=== PATIENT | male | born 1960 | race Caucasian/White ===

== ENCOUNTER 2016-10-06 19:16 | Observation (INO) | payer OTHER ==
[2016-10-06] VITALS (10 sets, daily range): BP systolic 119–177; BP diastolic 60–92; PULSE 84–95; RESP 18–20; TEMP 99.4; O2SAT 95–99
[~2016-10-06] VITALS: Ht 185.4 cm; Wt 141.0 kg
[~2016-10-06 19:16] MED LIST: FOSA70TA PO; FURO1TAB93 PO; GABA800T PO; HYDR-3129 PO; LANTINJ SQ; LEVE500T10 PO; NEXI40CA PO; NOVOLOGP2 SQ; POTA10IN2 PO; PROM6.257 PO; PROP10TA26 PO; RIFA550 PO; SAXA1TBM PO; TRAD5TAB PO; XANA1TAB6 PO
[2016-10-06] MEDS ORDERED: SODIUM CHLOR 0.9% 1000 ML INJ 1,000 ML IV SCH (19:45)
[2016-10-06] MEDS ORDERED: SODIUM CHLORIDE 0.9% FLUSH 5 ML FLUSH IVF PRN (19:45)
[2016-10-06] MEDS: NITROGLYCERIN 0.4 MG SL 25 TABS/BTL SL SCH ×3 (19:52→20:37)
[2016-10-06 20:07] LABS: AUTOMATED NEUTROPHIL # 4.2 TH/MM3 (1.8-7.7); BASOPHIL # 0.5 TH/MM3 (0-0.2); BASOPHIL % 7.2 % (0.0-2.0); EOSINOPHIL # 0.1 TH/MM3 (0-0.4); EOSINOPHIL % 1.2 % (0.0-4.0); HEMATOCRIT 45.3 % (39.0-51.0); LYMPH % 16.1 % (9.0-44.0); LYMPHOCYTE # 1.1 TH/MM3 (1.0-4.8); MEAN CORPUSCULAR HEMOGLOBIN 31.2 PG (27.0-34.0); MEAN CORPUSCULAR HGB CONC 35.1 % (32.0-36.0); MONO % 13.3 % (0.0-8.0); NEUT % 62.2 % (16.0-70.0); PLATELET COUNT 95 TH/MM3 (150-450); RED BLOOD COUNT 5.09 MIL/MM3 (4.50-5.90); RED CELL DISTRIBUTION WIDTH 12.7 % (11.6-17.2); WHITE BLOOD COUNT 6.8 TH/MM3 (4.0-11.0)
[2016-10-06 20:15] LABS: CHLORIDE 102 MEQ/L (98-107); POTASSIUM 3.9 MEQ/L (3.5-5.1); SODIUM (NA) 138 MEQ/L (136-145)
[2016-10-06 20:18] LABS: ANION GAP 10 MEQ/L (5-15); BICARBONATE 25.6 MEQ/L (21.0-32.0)
[2016-10-06 20:19] LABS: BLOOD UREA NITROGEN 15 MG/DL (7-18)
[2016-10-06 20:21] LABS: APTT (PATIENT) 21.5 SEC (24.3-30.1); INTERNATIONAL NORMALIZED RATIO 1.1 RATIO
[2016-10-06 20:22] LABS: GLOMERULAR FILTRATION RATE 83 ML/MIN (>89); HEMO FLAGS DIFF FINAL
[2016-10-06 20:25] LABS: CREATINE KINASE 216 U/L (39-308)
[2016-10-06 20:37] LABS: CKMB 3.4 NG/ML (0.5-3.6)
[2016-10-06] MEDS ORDERED: ONDANSETRON HCL 4 MG/2 ML VIAL IV PUSH ONE (20:45)
[2016-10-06] MEDS ORDERED: HYDROmorphone HCL PF 1 MG/ML VIAL IV PUSH ONE ×2 (20:45→22:15)
[2016-10-06] MEDS ORDERED: FOSA70TA PO (21:15)
[2016-10-06] MEDS ORDERED: XANA2TAB2 PO (21:15)
[2016-10-06] MEDS ORDERED: NEXI40CA PO (21:16)
[2016-10-06] MEDS ORDERED: FURO1TAB60 PO (21:16)
[2016-10-06] MEDS ORDERED: HYDR-3583 PO (21:17)
[2016-10-06] MEDS ORDERED: GABA800T PO (21:17)
[2016-10-06] MEDS ORDERED: PROP10TA6 PO (21:18)
[2016-10-06] MEDS ORDERED: LEVE500 PO (21:19)
[2016-10-06] MEDS ORDERED: NOVOLOGP2 SQ (21:19)
[2016-10-06] MEDS ORDERED: POTA-163 PO (21:20)
--- NOTE | 2016-10-06 21:20 | RADHPO ---
EXAM DATE/TIME: 10/06/2016 20:22 [facility] COMPARISON: No previous studies available for comparison. INDICATIONS : Chest pain. MEDICAL HISTORY : Congestive heart failure. SURGICAL HISTORY : None. ENCOUNTER: Initial ACUITY: 1 day PAIN SCORE: 10/10 LOCATION: Left chest FINDINGS: A single view of the chest demonstrates the lungs to be symmetrically aerated without evidence of mas s, infiltrate or effusion. The cardiomediastinal contours are unremarkable. Osseous structures are intact. CONCLUSION: No acute findings. Remote right rib fractures. Ronnie Thompson MD on October 06, 2016 at 21:18 Board Certified Radiologist. This report was verified electronically.
[2016-10-06] MEDS ORDERED: PROM6.256 PO (21:22)
[2016-10-06] MEDS ORDERED: METF500T PO (21:23)
[2016-10-06] MEDS ORDERED: XIFA550T4 PO (21:23)
[2016-10-06] MEDS ORDERED: IOHEXOL 350 MG/ML 10 ML VIAL (for RAD DIAG) IV ONE (22:11)
--- NOTE | 2016-10-06 23:17 | RADHPO ---
EXAM DATE/TIME: 10/06/2016 22:36 [facility] COMPARISON: No previous studies available for comparison. INDICATIONS : Left sided chest pain. IV CONTRAST: 80 cc Omnipaque 350 (iohexol) IV RADIATION DOSE: 21.99 CTDIvol (mGy) MEDICAL HISTORY : Gastroesophageal reflux disease. Chronic obstructive pulmonary disease. Cirrhosis.Hepatitis C. Hypert ension. SURGICAL HISTORY : Biliary stent. ENCOUNTER: Initial ACUITY: 1 day PAIN SCALE: 7/10 LOCATION: chest TECHNIQUE: Volumetric scanning of the chest was performed using a pulmonary embolism protocol MIP images were re constructed. Using automated exposure control and adjustment of the mA and/or kV according to patien t size, radiation dose was kept as low as reasonably achievable to obtain optimal diagnostic quality images. FINDINGS: PULMONARY ARTERIES: No filling defects are seen in the pulmonary arteries through the segmental level. LUNGS: There is no consolidation or pneumothorax . No concerning pulmonary nodule is visualized. PLEURAE: There is no pleural thickening or pleural effusion. MEDIASTINUM: There is good visualization of the great vessels of the middle mediastinum. No evidence of mediastin al or hilar adenopathy/mass. Heart size normal. There is coronary artery calcification, especially le ft main and left anterior descending. MUSCULOSKELETAL: Within normal limits for patient age. MISCELLANEOUS: Upper abdomen only partly included on the study. Patient has a TIPS, patency not assessed. Splenic ve in and main portal vein are distended. Marked splenomegaly noted. Previous cholecystectomy. CONCLUSION: 1. No PE or other acute cardiopulmonary disease demonstrated. 2. Coronary artery calcification. 3. Splenomegaly and distended portal vein. Patient has a TIPS. Manuel Griffin MD on October 06, 2016 at 23:13 Board Certified Radiologist. This report was verified electronically.
[2016-10-06] MEDS ORDERED: NITROGLYCERIN 2% OINT 1 GM PACKET TOPICAL ONE (23:30)
[2016-10-07 00:15] VITALS: BP 184/86; PULSE 90; RESP 18; TEMP 97.9; O2SAT 97
--- NOTE | 2016-10-07 00:36 | PD ---
HPI Chief Complaint: Chest Pain Time Seen by Provider: 20:36 Travel History International Travel<30 days: No Contact w/Intl Traveler<30days: No Traveled to known affect area: No History of Present Illness HPI 56-year-old male presents to the emergency department by private transportation for complaint of retrosternal chest pain since approximately 3 PM today. Patient has history of cardiac disease. Patient did not take aspirin or nitroglycerin prior to arrival to the emergency department. Patient has prescription for nitroglycerin but has not used this and does not know if he couldn't take the medication. No reported referred neck jaw back or abdominal pain. Patient does complain of referred pain to the left upper extremity. Patient has extensive past medical history. Patient is unable to identify exacerbating or alleviating factors. Patient also concerned that he may have a blood clot to the lung. Patient has family history of cardiac disease. Patient has history of CAD, CHF, Parkinson's disease, diabetes, chronic pain syndrome, anxiety depression, cirrhosis, COPD, CVA, hepatitis C; but denies tobacco use or alcohol use. Patient has had no recent injury or fall; no protracted bedrest her surgical procedure or long distance travel. Pain is reportedly 10 out of 10 in intensity. PFSH Past Medical History Narrative Medical CAD, CHF, Parkinson's disease, diabetes, chronic pain syndrome, anxiety depression, cirrhosis, COPD, CVA, hepatitis C; but denies tobacco use or alcohol use; cholecystectomy biliary stent cardiac stent; nursing notes reviewed Anxiety: Yes Depression: Yes Cancer: No Cardiac Catheterization: Yes Cardiovascular Problems: Yes Cirrhosis: Yes COPD: Yes Cerebrovascular Accident: Yes Diabetes: Yes Patient Takes Glucophage: Yes (10/06/16 at 0830) Diminished Hearing: No Endocrine: Yes Gastrointestinal Disorders: Yes (LIVER CIRROSIS REFLUX ) GERD: Yes Genitourinary: No Hepatitis: Yes (C) Hiatal Hernia: No Hypertension: Yes Implanted Vascular Access Dvce: Yes (BILIARY STENT) Medical other: Yes (Osteoporosis) Neurologic: Yes (Parkinsons) Psychiatric: No Respiratory: Yes (COPD) Immunizations Current: Yes Seizures: Yes Thyroid Disease: No Tetanus Vaccination: < 5 Years Influenza Vaccination: No Past Surgical History AICD: No Body Medical Devices: Biliary stent CARDIAC STENTS Cholecystectomy: Yes Coronary Stent: Yes (Unknown) Joint Replacement: No Pacemaker: No Other Surgery: Yes (cardiac stents, stent in liver ) Social History Alcohol Use: Yes (Occasionally) Tobacco Use: No Substance Use: No Allergies-Medications (Allergen,Severity, Reaction): Coded Allergies: Aspirin (Verified Allergy, Severe, HIVES, 10/06/16) Lidocaine (Verified Allergy, Severe, RASH, 10/06/16) Tramadol (Verified Allergy, Severe, RASH, 10/06/16) Trazodone (Verified Allergy, Severe, RASH, 10/06/16) Reported Meds & Prescriptions Reported Meds & Active Scripts Active Reported Metformin (Metformin HCl) 500 Mg Tab 500 Mg PO DAILY With a meal Xifaxan (Rifaximin) 550 Mg Tab 550 Mg PO Q12HR Promethazine-Codeine Liq 6.25-10 Mg/5 Ml Syrp 5 Ml PO Q4H PRN Potassium Chloride ER (Potassium Chloride) 20 Meq Tab 20 Meq PO BID Keppra (Levetiracetam) 500 Mg Tab 500 Mg PO BID Novolog Inj (Insulin Aspart) 1,000 Unit/10 Ml Vial 0 SQ DIRECTED Sliding Scale as directed. Propranolol (Propranolol HCl) 10 Mg Tab 10 Mg PO Q8HR Hydrocodone-Acetaminophen 10-325 mg Tab 1 Tab PO Q6H PRN Gabapentin 800 Mg Tab 800 Mg PO TID Lasix (Furosemide) 40 Mg Tab 40 Mg PO BID Nexium (Esomeprazole DR) 40 Mg Capdr 40 Mg PO DAILY Xanax (Alprazolam) 2 Mg Tab 2 Mg PO Q8H PRN Fosamax (Alendronate Sodium) 70 Mg Tab 35 Mg PO Q7D Review of Systems Except as stated in HPI: all other systems reviewed are Neg General / Constitutional: No: Fever, Chills HENT: No: Congestion Cardiovascular: Positive: Chest Pain or Discomfort Respiratory: No: Shortness of Breath Gastrointestinal: No: Abdominal Pain Genitourinary: No: Flank Pain Musculoskeletal: No: Myalgias, Arthralgias Skin: No Rash Neurologic: Positive: Weakness Psychiatric: No: Anxiety Hematologic/Lymphatic: No: Lymph Node Enlargement Physical Exam Narrative GENERAL: Well-developed well-nourished obese male in no acute distress no respiratory distress SKIN: Warm and dry. HEAD: Normocephalic. EYES: No scleral icterus. No injection or drainage. NECK: Supple, trachea midline. No JVD or lymphadenopathy. CARDIOVASCULAR: Regular rate and rhythm without murmurs, gallops, or rubs. RESPIRATORY: Breath sounds equal bilaterally. No accessory muscle use. GASTROINTESTINAL: Abdomen soft, non-tender, nondistended. MUSCULOSKELETAL: No cyanosis, or edema. BACK: Nontender without obvious deformity. No CVA tenderness. Data Data Last Documented VS Vital Signs Date Time Temp Pulse Resp B/P Pulse Ox O2 Delivery O2 Flow Rate FiO2 10/07/16 00:20 18 10/07/16 00:15 97.9 90 184/86 97 Room Air Orders Electrocardiogram (10/06/16 19:36) Basic Metabolic Panel (Bmp) (10/06/16 19:36) B-Type Natriuretic Peptide (10/06/16 19:36) Ckmb (Isoenzyme) Profile (10/06/16 19:36) Complete Blood Count With Diff (10/06/16 19:36) Magnesium (Mg) (10/06/16 19:36) Prothrombin Time / Inr (Pt) (10/06/16 19:36) Act Partial Throm Time (Ptt) (10/06/16 19:36) Troponin I (10/06/16 19:36) Chest, Single Ap (10/06/16 19:36) Ecg Monitoring (10/06/16 19:36) Bilateral Bp Monitoring (10/06/16 19:36) Iv Access Insert/Monitor (10/06/16 19:36) Oximetry (10/06/16 19:36) Oxygen Administration (10/06/16 19:36) Sodium Chloride 0.9% Flush (Ns Flush) (10/06/16 19:45) Nitroglycerin Sl (Nitrostat Sl) (10/06/16 19:45) Sodium Chlor 0.9% 1000 Ml Inj (Ns 1000 M (10/06/16 19:45) CKMB (10/06/16 19:50) CKMB% (10/06/16 19:50) Hydromorphone Pf Inj (Dilaudid Pf Inj) (10/06/16 20:45) Ondansetron Inj (Zofran Inj) (10/06/16 20:45) Lipase (10/06/16 19:50) Ct Pulmonary Angiogram (10/06/16 ) Hydromorphone Pf Inj (Dilaudid Pf Inj) (10/06/16 22:15) Nitroglycerin 2% Oint (Nitroglycerin 2% (10/06/16 23:30) Troponin I (10/07/16 00:22) Ckmb (Isoenzyme) Profile (10/07/16 00:22) Electrocardiogram (10/07/16 ) Admit Order (Ed Use Only) (10/07/16 ) ^ Saline Lock (10/07/16 00:34) Resp Oxygen Roverto C Titrat 1-4 L (10/07/16 ) ^ Notify Dr: Other (10/07/16 00:34) Sodium Chloride 0.9% Flush (Ns Flush) (10/07/16 09:00) Sodium Chloride 0.9% Flush (Ns Flush) (10/07/16 00:45) CKMB (10/07/16 00:30) CKMB% (10/07/16 00:30) Labs Laboratory Tests Test 10/06/16 10/07/16 19:50 00:30 White Blood Count 6.8 TH/MM3 Red Blood Count 5.09 MIL/MM3 Hemoglobin 15.9 GM/DL Hematocrit 45.3 % Mean Corpuscular Volume 89.0 FL Mean Corpuscular Hemoglobin 31.2 PG Mean Corpuscular Hemoglobin 35.1 % Concent Red Cell Distribution Width 12.7 % Platelet Count 95 TH/MM3 Mean Platelet Volume 7.6 FL Neutrophils (%) (Auto) 62.2 % Lymphocytes (%) (Auto) 16.1 % Monocytes (%) (Auto) 13.3 % Eosinophils (%) (Auto) 1.2 % Basophils (%) (Auto) 7.2 % Neutrophils # (Auto) 4.2 TH/MM3 Lymphocytes # (Auto) 1.1 TH/MM3 Monocytes # (Auto) 0.9 TH/MM3 Eosinophils # (Auto) 0.1 TH/MM3 Basophils # (Auto) 0.5 TH/MM3 CBC Comment DIFF FINAL Differential Comment Prothrombin Time 12.0 SEC Prothromb Time International 1.1 RATIO Ratio Activated Partial 21.5 SEC Thromboplast Time Sodium Level 138 MEQ/L Potassium Level 3.9 MEQ/L Chloride Level 102 MEQ/L Carbon Dioxide Level 25.6 MEQ/L Anion Gap 10 MEQ/L Blood Urea Nitrogen 15 MG/DL Creatinine 0.93 MG/DL Estimat Glomerular Filtration 83 ML/MIN Rate Random Glucose 294 MG/DL Calcium Level 9.8 MG/DL Magnesium Level 2.0 MG/DL Total Creatine Kinase 216 U/L 153 U/L Creatine Kinase MB 3.4 NG/ML 2.2 NG/ML Troponin I LESS THAN 0.02 LESS THAN 0.02 NG/ML NG/ML B-Type Natriuretic Peptide 13 PG/ML Lipase 127 U/L Exceptions Acute Myocardial Infarction ASA Not Given on Arrival: Hx. Allergy/Adv. Reaction, Patient Refuses Aspirin Comment: patient refuses aspirin and reports medication allergy to aspirin MDM Medical Decision Making Medical Screen Exam Complete: Yes Emergency Medical Condition: Yes Medical Record Reviewed: Yes (review of medical record cardiac catheterization 03/[address] Martinez minimal to mild coronary vessel disease with ejection fraction of 65%) Interpretation(s) CBC & BMP Diagram 10/06/16 19:50 Last Impressions Chest X-Ray 10/06/16 1936 Signed Impressions: Service Date/Time: Thursday, October 06, 2016 20:22 - CONCLUSION: No acute findings. Remote right rib fractures. Ronnie Thompson MD CT Angiography 10/06/16 0000 Signed Impressions: Service Date/Time: Thursday, October 06, 2016 22:36 - CONCLUSION: 1. No PE or other acute cardiopulmonary disease demonstrated. 2. Coronary artery calcification. 3. Splenomegaly and distended portal vein. Patient has a TIPS. Manuel Griffin MD EKG: Normal sinus rhythm no acute ST elevation or injury pattern change noted Differential Diagnosis Chest pain, ACS, myocardial infarction, PE, aortic dissection, aneurysm, pneumonia, CHF Narrative Course IV access obtained specimens collected and sent for resulting patient administered nitroglycerin without relief patient unable to take aspirin and EKG performed which reveals no acute ST elevation or injury pattern change Patient with ongoing complaint of pain administered Dilaudid 1 mg IV Chest x-ray reveals no acute abnormality EKG sinus rhythm without acute ST elevation or injury pattern change Patient again reports concern for blood clots/PE therefore CT pulmonary angiogram performed CT without evidence of PE Patient comfortable we'll admit to chest pain center per protocol; patient agreeable to observation admission plan Physician Communication Physician Communication case discussed with [facility] service for [employer] protocol Diagnosis Primary Impression: Chest pain Admitting Information Admitting Physician Requests: Observation Payal Carlos MD Oct 07, 2016 00:36
[2016-10-07] MEDS ORDERED: SODIUM CHLORIDE 0.9% FLUSH 5 ML FLUSH IVF PRN ×2 (00:45→01:15)
[2016-10-07 00:54] LABS: CREATINE KINASE 153 U/L (39-308)
[2016-10-07 01:07] LABS: CKMB 2.2 NG/ML (0.5-3.6)
[2016-10-07] MEDS ORDERED: ONDANSETRON HCL 4 MG/2 ML VIAL IV PRN (01:15)
[2016-10-07] MEDS ORDERED: ALPRAZolam 0.25 MG TAB PO PRN (01:15)
[2016-10-07] MEDS ORDERED: NITROGLYCERIN 0.4 MG SL 25 TABS/BTL SL PRN (01:15)
[2016-10-07 01:16] VITALS: BP 144/72; PULSE 86; RESP 20; TEMP 97.2; O2SAT 97
[2016-10-07 01:20] VITALS: BP 159/68
[2016-10-07 01:35] VITALS: PULSE 89
[2016-10-07] MEDS ORDERED: PANTOPRAZOLE SOD 40 MG DELAYED RELEASE TAB PO SCH (09:00)
[2016-10-07] MEDS ORDERED: SODIUM CHLORIDE 0.9% FLUSH 5 ML FLUSH IVF SCH ×2 (09:00)
--- NOTE | 2016-10-07 14:54 | EKG ---
Date Performed: 10/06/2016 Time Performed: 19:22:44 PTAGE: 56 years EKG: Sinus rhythm . Compared to previous tracing, previously seen extensive ST changes have improved Normal ECG PREVIOUS TRACING : 04/03/2016 13.15 DOCTOR: Van Brown Interpretating Date/Time 10/07/2016 14:52:24
--- NOTE | 2016-10-08 10:24 | EKG ---
Date Performed: 10/07/2016 Time Performed: 00:27:50 PTAGE: 56 years EKG: Sinus rhythm Inferior T wave changes are nonspecific Borderline ECG Compared to prior tracing no significant campbell ge PREVIOUS TRACING : 10/06/2016 19.22 DOCTOR: Alejandro Rangel Interpretating Date/Time 10/08/2016 10:23:17
== END 2016-10-07 03:34 | disposition left against medical advice (07) ==
LOC: PHED 19:16 → PHEDA 10-07 00:36 → PH3A 10-07 01:21
PROVIDERS: ADMIT Hospitalist; ATTEND Hospitalist
DX: R07.9 Chest pain, unspecified (principal); I25.10 Atherosclerotic heart disease of native coronary artery without angina pectoris; I10 Essential (primary) hypertension; R94.31 Abnormal electrocardiogram [ECG] [EKG]; R16.1 Splenomegaly, not elsewhere classified; J44.9 Chronic obstructive pulmonary disease, unspecified; K74.60 Unspecified cirrhosis of liver; G89.4 Chronic pain syndrome; G20 Parkinson's disease; E11.9 Type 2 diabetes mellitus without complications; K21.9 Gastro-esophageal reflux disease without esophagitis
CPT/HCPCS: 71010; 71275; 80048; 82550; 82552; 83690; 83735; 83880; 84484; 85025; 85610; 85730; 93005; 96361; 96374; 96375; 96376; 99285; G0378; J1170; J2405; J7030; Q9967

== ENCOUNTER 2016-11-28 22:08 | Observation (INO) | payer OTHER ==
[~2016-11-28] VITALS: Ht 185.4 cm; Wt 141.0 kg
[~2016-11-28 22:08] MED LIST changes: +FURO1TAB60 PO; -FURO1TAB93 PO; -HYDR-3129 PO; +HYDR-3583 PO; -LANTINJ SQ; +LEVE500 PO; -LEVE500T10 PO; +METF500T PO; +POTA-163 PO; -POTA10IN2 PO; +PROM6.256 PO; -PROM6.257 PO; -PROP10TA26 PO; +PROP10TA6 PO; -RIFA550 PO; -SAXA1TBM PO; -TRAD5TAB PO; -XANA1TAB6 PO; +XANA2TAB2 PO; +XIFA550T4 PO
[2016-11-28 22:33] VITALS: BP 169/93; PULSE 99; RESP 20; TEMP 98.4; O2SAT 95
[2016-11-29] VITALS (10 sets, daily range): BP systolic 136–185; BP diastolic 61–86; PULSE 80–95; RESP 14–20; TEMP 96–97.3; O2SAT 95–98
[2016-11-29] MEDS ORDERED: NOVOLOGP2 SQ (01:25)
[2016-11-29] MEDS ORDERED: FURO1TAB60 PO ×2 (01:25)
[2016-11-29] MEDS ORDERED: INSU1INJ13 SQ (01:38)
[2016-11-29] MEDS ORDERED: SOMA350T PO (01:38)
[2016-11-29] MEDS ORDERED: OXYC30TA PO (01:42)
[2016-11-29] MEDS ORDERED: TETANUS/DIPHTHERIA TOXOID ADULT 0.5 ML VIAL IM ONE (02:30)
--- NOTE | 2016-11-29 03:24 | RADHPO ---
EXAM DATE/TIME: 11/29/2016 02:46 [facility] COMPARISON: No previous studies available for comparison. INDICATIONS : Right foot pain after stepping on fern nail, possible foreign body. MEDICAL HISTORY : None. SURGICAL HISTORY : None. ENCOUNTER: Initial ACUITY: 1 day PAIN SCORE: 10/10 LOCATION: Right foot pain, plantar surface. FINDINGS: Two view examination of the right foot demonstrates no soft tissue swelling, dislocation, or fracture . No radiopaque foreign body. The calcaneus is intact. Bony mineralization is normal. CONCLUSION: Unremarkable limited examination of the right foot. Dennis Grijalva Jr., MD on November 29, 2016 at 3:23 Board Certified Radiologist. This report was verified electronically.
[2016-11-29] MEDS ORDERED: CLINDAMYCIN INJ 900 MG in SODIUM CHLORIDE 0.9% INJ 100 ML IV ONE (03:30)
[2016-11-29] MEDS ORDERED: ACETAMINOPHEN/HYDROcodone 325 MG/5 MG TAB PO ONE (03:30)
[2016-11-29] MEDS ORDERED: ACETAMINOPHEN/HYDROcodone 325 MG/5 MG TAB PO PRN ×2 (04:30→12:30)
[2016-11-29] MEDS ORDERED: ACETAMINOPHEN 325 MG TAB PO PRN (04:30)
[2016-11-29] MEDS ORDERED: DEXTROSE 50% IN WATER 50 ML VIAL(D50) IV PUSH PRN (04:30)
[2016-11-29] MEDS ORDERED: GLUCAGON 1 MG/ML VIAL OTHER PRN (04:30)
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
[2016-11-29] MEDS ORDERED: SODIUM CHLORIDE 0.9% FLUSH 10 ML FLUSH IVF PRN (04:45)
[2016-11-29 04:48] LABS: BASOPHIL % 0.5 % (0.0-2.0); EOSINOPHIL # 0.2 TH/MM3 (0-0.4); EOSINOPHIL % 2.3 % (0.0-4.0); HEMATOCRIT 50.2 % (39.0-51.0); HEMO FLAGS DIFF FINAL; LYMPH % 23.3 % (9.0-44.0); LYMPHOCYTE # 1.5 TH/MM3 (1.0-4.8); MEAN CELL VOLUME 86.4 FL (80.0-100.0); MEAN CORPUSCULAR HEMOGLOBIN 29.3 PG (27.0-34.0); MEAN CORPUSCULAR HGB CONC 33.9 % (32.0-36.0); MONO % 11.8 % (0.0-8.0); NEUT % 62.1 % (16.0-70.0); PLATELET COUNT 97 TH/MM3 (150-450); RED CELL DISTRIBUTION WIDTH 13.2 % (11.6-17.2); WHITE BLOOD COUNT 6.5 TH/MM3 (4.0-11.0)
[2016-11-29 04:54] LABS: POTASSIUM 3.6 MEQ/L (3.5-5.1)
[2016-11-29 04:57] LABS: BICARBONATE 25.4 MEQ/L (21.0-32.0)
[2016-11-29] MEDS: INSULIN ASPART SUPPLEMENTAL SCALE SQ SCH ×3 (06:14→23:08)
[2016-11-29] MEDS: CLINDAMYCIN INJ 600 MG in SODIUM CHLORIDE 0.9% INJ 100 ML IV SCH ×2 (09:43→18:28)
[2016-11-29] MEDS: SODIUM CHLORIDE 0.9% FLUSH 10 ML FLUSH IV FLUSH SCH ×2 (09:43→21:00)
[2016-11-29] MEDS: levETIRAcetam 500 MG TAB PO SCH ×2 (12:05→20:04)
[2016-11-29] MEDS: POTASSIUM CHLORIDE 20 MEQ CONTROLLED RELEASE TAB PO SCH ×2 (12:05→20:04)
[2016-11-29] MEDS: RIFAXIMIN 550 MG TAB PO SCH ×2 (12:05→20:03)
[2016-11-29] MEDS: FUROSEMIDE 40 MG TAB PO SCH ×2 (12:05→18:27)
[2016-11-29] MEDS ORDERED: ACETAMINOPHEN/HYDROcodone 325 MG/10 MG TAB PO PRN (12:30)
[2016-11-29] MEDS: PROPRANOLOL HCL 10 MG TAB PO SCH ×2 (13:29→22:11)
[2016-11-29] MEDS ORDERED: INSULIN ASPART 1,000 UNITS/10 ML VIAL SQ ONE (17:30)
[2016-11-29] MEDS: PIPERACIL-TAZO 4.5 GM PREMIX 100 ML IV SCH (18:27)
[2016-11-29] MEDS: HYDROmorphone HCL PF 1 MG/ML VIAL IV PUSH PRN ×2 (18:29→22:11)
--- NOTE | 2016-11-29 18:35 | HHI.HP ---
HPI Service [facility] Primary Care Physician Non-Staff Admission Diagnosis Puncture wound R foot infection; Diabetes Diagnoses: Travel History International Travel<30 Days: No Contact w/Intl Traveler <30 Da: No Traveled to Known Affected Are: No History of Present Illness 56-year-old male with a history of cirrhosis, hepatitis C status post treatment , diabetes, who presents having stepped on a nail with his right foot around 5 PM on 11/28. Nail which was quite fern went through sandal became stuck in pad of right foot, had to be removed with pliers by the patient. He reports extreme sharp pain which is constant in the right foot, nonradiating. He reports feeling all right prior to stepping on the nail, at baseline. Sterile culture was performed in ER. He reports that pain in right foot has gotten worse since admission. Patient denies any fevers. Denies any nausea or vomiting. Denies any headache. Denies any chest pain or shortness of breath. Review of Systems Performed and negative except for history of present illness and past medical history. Past Family Social History Past Medical History Seizures Hepatic encephalopathy Cirrhosis Hepatitis C, reportedly resolved after treatment Diabetes mellitus. Patient reports most recent A1c is under 7. Neuropathy Anxiety, depression. Patient denies any suicidal ideation. Reportedly coronary artery disease, however ejection fraction and cardiac catheterization in 2015 within normal limits. No significant coronary artery disease. Parkinson's Sleep apnea Reported CVA. Past Surgical History Reported cardiac stenting. Reported biliary stenting. Ported surgery to left foot Reported Medications Reported Meds & Active Scripts Active Reported Oxycodone (Oxycodone HCl) 30 Mg Tab 30 Mg PO Q8H PRN Tresiba Flextouch Pen Inj (Insulin Degludec Inj) 600 unit/3 ML Pen 80 Units SQ DAILY Soma (Carisoprodol) 350 Mg Tab 350 Mg PO TID Novolog Inj (Insulin Aspart) 1,000 Unit/10 Ml Vial 35 Units SQ TIDAC Lasix (Furosemide) 40 Mg Tab 40 Mg PO 1PM & 6PM Lasix (Furosemide) 40 Mg Tab 80 Mg PO AC BREAKFAST Metformin (Metformin HCl) 500 Mg Tab 500 Mg PO DAILY With a meal Xifaxan (Rifaximin) 550 Mg Tab 550 Mg PO Q12HR Promethazine-Codeine Liq 6.25-10 Mg/5 Ml Syrp 5 Ml PO Q4H PRN Potassium Chloride ER (Potassium Chloride) 20 Meq Tab 20 Meq PO BID Keppra (Levetiracetam) 500 Mg Tab 500 Mg PO BID Propranolol (Propranolol HCl) 10 Mg Tab 10 Mg PO Q8HR Hydrocodone-Acetaminophen 10-325 mg Tab 1 Tab PO Q6H PRN Nexium (Esomeprazole DR) 40 Mg Capdr 40 Mg PO DAILY Xanax (Alprazolam) 2 Mg Tab 2 Mg PO Q8H PRN Fosamax (Alendronate Sodium) 70 Mg Tab 35 Mg PO Q7D Allergies: Coded Allergies: Aspirin (Verified Allergy, Severe, HIVES, 11/29/16) Lidocaine (Verified Allergy, Severe, RASH, 11/29/16) Tramadol (Verified Allergy, Severe, RASH, 11/29/16) Trazodone (Verified Allergy, Severe, RASH, 11/29/16) Family History Family history reviewed with the patient, and found to be currently noncontributory. Social History Nonsmoker. Quit smoking in 1979 after smoking for 2 years. Nondrinker. The patient denies illicit drugs. Patient lives with roommate. Physical Exam Vital Signs Vital Signs Date Time Temp Pulse Resp B/P Pulse Ox O2 Delivery O2 Flow Rate FiO2 11/29/16 12:30 96.3 82 16 185/81 98 11/29/16 08:34 96.6 86 14 164/72 97 11/29/16 08:00 96 21 11/29/16 08:00 96.6 86 15 164/72 97 11/29/16 06:27 96 21 11/29/16 06:19 97.3 90 20 157/73 97 11/29/16 05:30 94 18 146/61 95 Room Air 11/29/16 04:30 90 18 11/29/16 04:30 90 18 143/70 96 Room Air 11/29/16 01:35 95 18 182/77 96 Room Air 11/29/16 01:30 96 18 11/28/16 22:33 98.4 99 20 169/93 95 Physical Exam GENERAL: This is a well-nourished, well-developed patient, in no apparent distress. Obese. Alert and oriented 3. SKIN: No rashes, ecchymoses or lesions. Cool and dry. HEAD: Atraumatic. Normocephalic. No temporal or scalp tenderness. EYES: Pupils equal round and reactive. Extraocular motions intact. No scleral icterus. No injection or drainage. ENT: Nose without bleeding, purulent drainage or septal hematoma. Throat without erythema, tonsillar hypertrophy or exudate. Uvula midline. Airway patent. NECK: Trachea midline. No JVD or lymphadenopathy. Supple, nontender, no meningeal signs. CARDIOVASCULAR: Regular rate and rhythm without murmurs, gallops, or rubs. RESPIRATORY: Clear to auscultation. Breath sounds equal bilaterally. No wheezes , rales, or rhonchi. GASTROINTESTINAL: Abdomen soft, non-tender, nondistended. No hepato-splenomegaly , or palpable masses. No guarding. MUSCULOSKELETAL: Extremities without clubbing, cyanosis, or edema. Right foot with 2 mm puncture wound, surrounded by 0.5 cm of erythema area exquisitely tender to palpation. No crepitus. NEUROLOGICAL: Awake and alert. Cranial nerves II through XII intact. Motor and sensory grossly within normal limits. Five out of 5 muscle strength in all muscle groups. Normal speech. Laboratory Laboratory Tests Test 11/29/16 04:05 White Blood Count 6.5 Red Blood Count 5.80 Hemoglobin 17.0 Hematocrit 50.2 Mean Corpuscular Volume 86.4 Mean Corpuscular Hemoglobin 29.3 Mean Corpuscular Hemoglobin 33.9 Concent Red Cell Distribution Width 13.2 Platelet Count 97 Mean Platelet Volume 7.7 Neutrophils (%) (Auto) 62.1 Lymphocytes (%) (Auto) 23.3 Monocytes (%) (Auto) 11.8 Eosinophils (%) (Auto) 2.3 Basophils (%) (Auto) 0.5 Neutrophils # (Auto) 4.0 Lymphocytes # (Auto) 1.5 Monocytes # (Auto) 0.8 Eosinophils # (Auto) 0.2 Basophils # (Auto) 0.0 CBC Comment DIFF FINAL Differential Comment Sodium Level 138 Potassium Level 3.6 Chloride Level 101 Carbon Dioxide Level 25.4 Anion Gap 12 Blood Urea Nitrogen 12 Creatinine 0.87 Estimat Glomerular Filtration 90 Rate Random Glucose 264 Calcium Level 10.1 Date/Time Procedure Status Source Growth 11/29/16 04:35 Gram Stain - Final Resulted Wound Foot 11/29/16 04:35 Wound Culture Resulted Wound Foot Pending 11/29/16 04:12 Aerobic Blood Culture Received Blood Peripheral Pending 11/29/16 04:12 Anaerobic Blood Culture Received Blood Peripheral Pending Result Diagram: 11/29/16 0405 11/29/16 0405 Imaging Last Impressions Foot X-Ray 11/29/16 0000 Signed Impressions: Service Date/Time: November 02:46 - CONCLUSION: Unremarkable limited examination of the right foot. Dennis Grijalva Jr., MD Assessment and Plan Assessment and Plan //Diabetic foot infection. //Status post nail puncture by foot -Nail went through shoe -Received tetanus vaccination. -Initially on clindamycin IV started on admission -11/29. We'll start Zosyn for antipseudomonal coverage and diabetic foot wound in consult podiatry. Cultures on admission with rare gram-positive cocci. //Diabetes. With hyperglycemia today. -11/29. Glucose in the 400s. We'll increase Levemir, add mealtime aspart, increased sliding scale. Continue to monitor. //History of seizures. Continue Keppra. //History of hepatic encephalopathy. //History of cirrhosis. No acute issues. Continue home medications. Continue diuretics. //GERD. Chronic. Continue PPI. //Chronic pain. Continue home medications. Add Dilaudid for breakthrough pain. //From cytopenia. Platelets 97. No signs of bleeding. Secondary to cirrhosis. Continue to monitor. //Prophylaxis. Will hold off on anticoagulation pending podiatry evaluation. Discussed Condition With Patient, nurse. Physician Certification 2 Midnight Certification Type: Admission for Inpatient Services Order for Inpatient Services The services are ordered in accordance with Medicare regulations or non- Medicare payer requirements, as applicable. In the case of services not specified as inpatient-only, they are appropriately provided as inpatient services in accordance with the 2-midnight benchmark. Estimated LOS (days): 3 days is the estimated time the patient will need to remain in the hospital, assuming treatment plan goals are met and no additional complications. Post-Hospital Plan: Not yet determined Shine Nguyen MD Nov 29, 2016 18:35
[2016-11-29] MEDS: INSULIN DETEMIR 100 UNITS/ML VIAL SQ SCH (20:11)
[2016-11-30] VITALS: BP 95/58; PULSE 73; RESP 20; TEMP 97.1; O2SAT 96
[2016-11-30] MEDS: CLINDAMYCIN INJ 600 MG in SODIUM CHLORIDE 0.9% INJ 100 ML IV SCH ×3 (02:35→17:00)
[2016-11-30] MEDS: PIPERACIL-TAZO 4.5 GM PREMIX 100 ML IV SCH ×4 (02:36→17:25)
[2016-11-30 04:00] VITALS: BP 118/71; PULSE 71; RESP 20; TEMP 97; O2SAT 96
[2016-11-30] MEDS: INSULIN ASPART SUPPLEMENTAL SCALE SQ SCH ×4 (07:21→22:22)
[2016-11-30] MEDS: FUROSEMIDE 40 MG TAB PO SCH ×3 (07:21→17:31)
[2016-11-30] MEDS: PROPRANOLOL HCL 10 MG TAB PO SCH ×3 (07:22→22:20)
[2016-11-30 07:34] LABS: AUTOMATED NEUTROPHIL # 1.1 TH/MM3 (1.8-7.7); BASOPHIL % 0.5 % (0.0-2.0); EOSINOPHIL # 0.1 TH/MM3 (0-0.4); EOSINOPHIL % 3.2 % (0.0-4.0); HEMATOCRIT 42.8 % (39.0-51.0); LYMPH % 32.5 % (9.0-44.0); LYMPHOCYTE # 0.7 TH/MM3 (1.0-4.8); MEAN CELL VOLUME 87.3 FL (80.0-100.0); MEAN CORPUSCULAR HEMOGLOBIN 29.7 PG (27.0-34.0); MEAN CORPUSCULAR HGB CONC 34.1 % (32.0-36.0); MONO % 14.6 % (0.0-8.0); NEUT % 49.2 % (16.0-70.0); PLATELET COUNT 54 TH/MM3 (150-450); RED BLOOD COUNT 4.91 MIL/MM3 (4.50-5.90); RED CELL DISTRIBUTION WIDTH 13.1 % (11.6-17.2); WHITE BLOOD COUNT 2.2 TH/MM3 (4.0-11.0)
[2016-11-30 07:35] LABS: HEMO FLAGS AUTO DIFF
[2016-11-30 07:43] LABS: POTASSIUM 3.8 MEQ/L (3.5-5.1)
[2016-11-30 07:46] LABS: BICARBONATE 26.4 MEQ/L (21.0-32.0); MAGNESIUM 2.3 MG/DL (1.5-2.5)
[2016-11-30 08:00] VITALS: BP 119/63; PULSE 69; RESP 18; TEMP 97.8; O2SAT 99
[2016-11-30] MEDS: INSULIN ASPART 1,000 UNITS/10 ML VIAL SQ SCH ×3 (08:00→17:00)
[2016-11-30 08:38] LABS: PLATELET ESTIMATE SMEAR LOW (NORMAL); PLATELET MORPHOLOGY NORMAL (NORMAL); SCAN/DIFF AUTO DIFF CONFIRMED
[2016-11-30] MEDS: INSULIN DETEMIR 100 UNITS/ML VIAL SQ SCH (08:46)
[2016-11-30] MEDS: POTASSIUM CHLORIDE 20 MEQ CONTROLLED RELEASE TAB PO SCH ×2 (08:48→22:20)
[2016-11-30] MEDS: CARISOPRODOL 350 MG TAB PO SCH ×3 (08:48→17:31)
[2016-11-30] MEDS: PANTOPRAZOLE SOD 40 MG DELAYED RELEASE TAB PO SCH (08:48)
[2016-11-30] MEDS: levETIRAcetam 500 MG TAB PO SCH ×2 (08:48→22:20)
[2016-11-30] MEDS: RIFAXIMIN 550 MG TAB PO SCH ×2 (08:48→22:20)
[2016-11-30] MEDS: SODIUM CHLORIDE 0.9% FLUSH 10 ML FLUSH IV FLUSH SCH ×2 (08:49→21:00)
[2016-11-30] MEDS: HYDROmorphone HCL PF 1 MG/ML VIAL IV PUSH PRN ×3 (08:49→17:24)
[2016-11-30] MEDS ORDERED: INSULIN DETEMIR 100 UNITS/ML VIAL SQ ONE (11:15)
[2016-11-30 12:00] VITALS: BP 136/64; PULSE 73; RESP 20; TEMP 97.2; O2SAT 96
[2016-11-30 16:00] VITALS: BP 114/58; PULSE 77; RESP 20; TEMP 97.1; O2SAT 99
[2016-11-30] MEDS ORDERED: INSULIN ASPART 1,000 UNITS/10 ML VIAL SQ ONE (16:45)
[2016-11-30] MEDS: CEFEPIME INJ 2,000 MG in SODIUM CHLORIDE 0.9% INJ 100 ML IV SCH (18:00)
[2016-11-30 20:00] VITALS: BP 128/65; PULSE 79; RESP 20; TEMP 97; O2SAT 98
[2016-11-30] MEDS ORDERED: INSULIN DETEMIR 100 UNITS/ML VIAL SQ SCH (21:00)
--- NOTE | 2016-11-30 22:37 | HHI.PR ---
Subjective Remarks Patient seen today around 1 PM. He says the pain is better controlled today, but continues to per report severe pain in the right foot.. Denies any chest pain or shortness of breath. Denies any nausea or vomiting. Objective Vital Signs Date Time Temp Pulse Resp B/P Pulse Ox O2 Delivery O2 Flow Rate FiO2 11/30/16 18:15 18 11/30/16 18:15 18 11/30/16 16:00 97.1 77 20 114/58 99 11/30/16 12:00 97.2 73 20 136/64 96 11/30/16 08:00 97.8 69 18 119/63 99 11/30/16 04:00 97.0 71 20 118/71 96 11/30/16 00:00 97.1 73 20 95/58 96 I/O 11/29/16 11/29/16 11/29/16 11/30/16 11/30/16 11/30/16 07:00 15:00 23:00 07:00 15:00 23:00 Intake Total 340 ml 1650 ml 1850 ml 1275 ml Output Total 900 ml 600 ml 2300 ml 2750 ml Balance -560 ml 1050 ml -450 ml -1475 ml Intake Oral 240 ml 1650 ml 1450 ml 925 ml IV Total 100 ml 400 ml 350 ml Output Urine Total 900 ml 600 ml 2300 ml 2750 ml # Voids 5 # Bowel Movements 2 0 1 Result Diagram: 11/30/16 0710 11/30/16 0710 Objective Remarks patient sitting up in bed. Appears comfortable.GENERAL: SKIN: Warm and dry. HEAD: Normocephalic. EYES: No scleral icterus. No injection or drainage. NECK: Supple, trachea midline. No JVD or lymphadenopathy. CARDIOVASCULAR: Regular rate and rhythm without murmurs, gallops, or rubs. RESPIRATORY: Breath sounds equal bilaterally. No accessory muscle use. GASTROINTESTINAL: Abdomen soft, non-tender, nondistended. MUSCULOSKELETAL: No cyanosis, or edema. right foot with improved erythema. Still with swelling on foot pad BACK: Nontender without obvious deformity. No CVA tenderness. A/P Assessment and Plan //Diabetic foot infection. //Status post nail puncture by foot -Nail went through shoe -Received tetanus vaccination. -Initially on clindamycin IV started on admission -11/29. We'll start Zosyn for antipseudomonal coverage and diabetic foot wound in consult podiatry. Cultures on admission with rare gram-positive cocci. -11/30. Appreciate podiatry assistance. Switched to cefepime due to thrombocytopenia //Diabetes. . -11/29. Glucose in the 400s. We'll increase Levemir, add mealtime aspart, increased sliding scale. Continue to monitor. -11/30. Increase insulin again. A1c pending. //History of seizures. Continue Keppra. //History of hepatic encephalopathy. //History of cirrhosis. No acute issues. Continue home medications. Continue diuretics. //GERD. Chronic. Continue PPI. //Chronic pain. Continue home medications. Add Dilaudid for breakthrough pain. //Thrombocytopenia Platelets 97. No signs of bleeding. Secondary to cirrhosis. -11/30. Discontinue Zosyn. Continue to monitor. //Prophylaxis. SCDs. Will hold off on anticoagulation due to thrombocytopenia. Discharge Planning pending podiatry clearance. Shine Nguyen MD Nov 30, 2016 22:36
[2016-12-01] VITALS: BP 107/63; PULSE 75; RESP 18; TEMP 98.1; O2SAT 96
[2016-12-01] MEDS: HYDROmorphone HCL PF 1 MG/ML VIAL IV PUSH PRN ×2 (00:39→08:54)
[2016-12-01] MEDS: CLINDAMYCIN INJ 600 MG in SODIUM CHLORIDE 0.9% INJ 100 ML IV SCH ×2 (03:33→08:38)
[2016-12-01] MEDS: CEFEPIME INJ 2,000 MG in SODIUM CHLORIDE 0.9% INJ 100 ML IV SCH (05:54)
[2016-12-01] MEDS: INSULIN ASPART SUPPLEMENTAL SCALE SQ SCH (05:55)
[2016-12-01] MEDS: PROPRANOLOL HCL 10 MG TAB PO SCH (05:55)
[2016-12-01] MEDS: FUROSEMIDE 40 MG TAB PO SCH (06:36)
[2016-12-01 08:00] VITALS: BP 91/56; PULSE 65; RESP 18; TEMP 96.7; O2SAT 99
[2016-12-01] MEDS ORDERED: INSULIN ASPART 1,000 UNITS/10 ML VIAL SQ SCH (08:00)
[2016-12-01 08:07] LABS: AUTOMATED NEUTROPHIL # 1.4 TH/MM3 (1.8-7.7); BASOPHIL % 0.7 % (0.0-2.0); EOSINOPHIL # 0.1 TH/MM3 (0-0.4); EOSINOPHIL % 3.7 % (0.0-4.0); HEMATOCRIT 40.5 % (39.0-51.0); LYMPH % 32.5 % (9.0-44.0); LYMPHOCYTE # 0.8 TH/MM3 (1.0-4.8); MEAN CELL VOLUME 86.6 FL (80.0-100.0); MEAN CORPUSCULAR HEMOGLOBIN 30.5 PG (27.0-34.0); MEAN CORPUSCULAR HGB CONC 35.2 % (32.0-36.0); MONO % 11.6 % (0.0-8.0); NEUT % 51.5 % (16.0-70.0); PLATELET COUNT 49 TH/MM3 (150-450); RED BLOOD COUNT 4.68 MIL/MM3 (4.50-5.90); RED CELL DISTRIBUTION WIDTH 12.6 % (11.6-17.2); WHITE BLOOD COUNT 2.6 TH/MM3 (4.0-11.0)
--- NOTE | 2016-12-01 08:09 | MB ---
cc: YULIANA SANCHEZ DATE OF CONSULTATION: 11/30/2016 CHIEF COMPLAINT Right foot puncture wound. HISTORY OF PRESENT ILLNESS Mr. Cochran is a 56-year-old male patient who states that he stepped on a fern nail in his right foot on November 28 around 05:00 p.m. The patient was brought to the ER shortly after he had already removed the nail by himself but was having severe pain and had not had a tetanus shot in several years, so he went to the ER to receive Tetanus shot and was also given antibiotics and admitted. He denies any nausea, vomiting, fever, headache, chills, just extreme pain out of proportion. PAST MEDICAL HISTORY: 1. Medical history includes cirrhosis 2. Hepatitis C post treatment. 3. Diabetes mellitus 4. Neuropathy 5. Anxiety 6. Coronary artery disease 7. Parkinson's 8. History of CVA 9. Hepatic encephalopathy 10. Seizures. PAST SURGICAL HISTORY: 1. Includes cardiac stents 2. Biliary stenting. 3. Surgery to the left foot. MEDICATIONS Please see list. ALLERGIES ASPIRIN LIDOCAINE TRAMADOL FAMILY HISTORY Noncontributory. SOCIAL HISTORY The patient non smoker, He quit in 1979 denies any alcohol or illicit drug. Lives with is life partner. LABORATORY DATA White count is 2.2 with a max of 6.5, hemoglobin 14.6, hematocrit 42.8, platelets 54, sodium 140 potassium 3.8, chloride 106, carbon dioxide 26.4, BUN 12, glucose 293, blood cultures negative x1 day. Wound cultures with gram stain is negative. X-ray of the right foot were negative for any signs of foreign body severe soft tissue edema, fracture, gas in the soft tissue or cortical erosion. PHYSICAL EXAMINATION: VITAL SIGNS: Temperature is 97.1 T-max 98.4, pulse 77, respiratory rate 20, blood pressure 114/58, pulse ox 99% O2 on room air. EXAMINATION: The patient has palpable pulses. Cap fill time less than 3 secs. Gross sensation is diminished. Wound at right plantar central aspect around the second interspace of the right foot measuring 0.5 x 0.5 x0cm Sensitivity around the wound site, I feel is out of proportion considering the appearance of the wound. Mild erythema to the dorsum of the foot, non streaking. There is slight edema comparable to edema on the contralateral foot. ASSESSMENT/PLAN 1. Puncture wound with questionable cellulitis. -No obvious signs of abscess or deeper infection, however examination is limited due to the patients pain. He states that the pain is excruciating, even with the lightest touch, including checking pedal pulses. Therefore exam was limited, however the bandage was almost 16-hour-old with minimal drainage on it. No malodor and the erythema was not overly impressive. The radiographs were negative. Given this information I advised patient to WBAT in a CAM boot and daily dressing instructions were provided for nursing staff. No surgical intervention from podiatric stand point. Patient has [employer] insurance and will need a referral for any follow up, but has an appt with his PCP on Saturday. Thank you for this consultation and please call if there are any changes or further developments. 3. At this time and no further treatment for the patient's of the duration of IV antibiotics to the hospitalist, suggesting dressing changes, bacitracin ointment. We will order a Cam walking boot to provide more comfort to the patient when ambulating. He does actually stand up and will need a referral for any outpatient follow up. But has an appointment with his primary care doctor on Saturday. Please not hesitate to call to reconsult if there are any further negative developments. Yuliana Khan /9:54 PM /7:51 AM TATIANNA
[2016-12-01 08:15] LABS: POTASSIUM 3.9 MEQ/L (3.5-5.1)
[2016-12-01 08:20] LABS: BICARBONATE 27.5 MEQ/L (21.0-32.0); HEMO FLAGS AUTO DIFF
[2016-12-01] MEDS: SODIUM CHLORIDE 0.9% FLUSH 10 ML FLUSH IV FLUSH SCH (08:39)
[2016-12-01] MEDS: POTASSIUM CHLORIDE 20 MEQ CONTROLLED RELEASE TAB PO SCH (08:39)
[2016-12-01] MEDS: levETIRAcetam 500 MG TAB PO SCH (08:39)
[2016-12-01] MEDS: PANTOPRAZOLE SOD 40 MG DELAYED RELEASE TAB PO SCH (08:39)
[2016-12-01] MEDS: CARISOPRODOL 350 MG TAB PO SCH (08:40)
[2016-12-01] MEDS: RIFAXIMIN 550 MG TAB PO SCH (08:40)
[2016-12-01 08:42] LABS: PLATELET ESTIMATE SMEAR LOW (NORMAL); PLATELET MORPHOLOGY NORMAL (NORMAL); SCAN/DIFF AUTO DIFF CONFIRMED
[2016-12-01] MEDS ORDERED: metFORMIN HCL 500 MG TAB PO SCH (09:00)
[2016-12-01] MEDS ORDERED: MUPIROCIN 2% OINT 22 GM TUBE TOPICAL SCH (09:00)
[2016-12-01] MEDS ORDERED: INSULIN DETEMIR 100 UNITS/ML VIAL SQ SCH (09:00)
[2016-12-01] MEDS ORDERED: OXYC1CAP PO (10:08)
[2016-12-01] MEDS ORDERED: CEPH-460 PO (10:11)
[2016-12-01] MEDS ORDERED: MUPI2OIN TOPICAL (10:25)
[2016-12-01] MEDS ORDERED: OXYC-395 PO (10:40)
[2016-12-01 13:13] LABS: HEMOGLOBIN A1b 2.1 %; HEMOGLOBIN Ao 80.1 %; HEMOGLOBIN LA1C 3.4 %; HEMOGLOBIN P3 4.7 %
--- NOTE | 2016-12-02 07:58 | HHI.PR ---
Subjective Remarks Date of service 12/01/16. Patient seen the morning of 12/01/16. He states that pain is controlled. He does not have pain medication at home, is requesting prescription. He agrees to follow up with primary care. He has been supplied with walking boot, crutches. He says he feels comfortable going home. He will take care to avoid other nails Objective Vital Signs Date Time Temp Pulse Resp B/P Pulse Ox O2 Delivery O2 Flow Rate FiO2 12/01/16 08:00 96.7 65 18 91/56 99 I/O 12/01/16 12/01/16 12/01/16 12/02/16 12/02/16 12/02/16 07:00 15:00 23:00 07:00 15:00 23:00 Output Total 900 ml Balance -900 ml Output Urine Total 900 ml Result Diagram: 12/01/16 0740 12/01/16 0740 Imaging Last Impressions Foot X-Ray 11/29/16 0000 Signed Impressions: Service Date/Time: November 02:46 - CONCLUSION: Unremarkable limited examination of the right foot. Dennis Grijalva Jr., MD Objective Remarks GENERAL: Patient sitting up in bed as before. Appears comfortable. Alert and oriented 3. SKIN: Warm and dry. HEAD: Normocephalic. EYES: No scleral icterus. No injection or drainage. NECK: Supple, trachea midline. No JVD. CARDIOVASCULAR: Regular rate and rhythm without murmurs, gallops, or rubs. RESPIRATORY: Breath sounds equal bilaterally. No accessory muscle use. GASTROINTESTINAL: Abdomen soft, non-tender, nondistended. MUSCULOSKELETAL: No cyanosis, or edema. right foot with improved erythema. Still with swelling on foot pad, improved from yesterday. BACK: Nontender without obvious deformity. No CVA tenderness. A/P Assessment and Plan //Diabetic foot infection. //Status post nail puncture by foot -Nail went through shoe -Received tetanus vaccination. -Initially on clindamycin IV started on admission -11/29. We'll start Zosyn for antipseudomonal coverage and diabetic foot wound in consult podiatry. Cultures on admission with rare gram-positive cocci. -11/30. Appreciate podiatry assistance. Switched to cefepime due to thrombocytopenia -12/01. Podiatry has supplied patient with boot. He will follow-up with primary care as outpatient. Continue Keflex to complete treatment course. He'll return if any fevers. //Diabetes. . -11/29. Glucose in the 400s. We'll increase Levemir, add mealtime aspart, increased sliding scale. Continue to monitor. -11/30. Increase insulin again. A1c pending. -12/01. Control somewhat improved. Discharge home. A1c 8.5 uncontrolled. Follow with primary care. //History of seizures. Chronic. Continue Keppra. //History of hepatic encephalopathy. //History of cirrhosis. No acute issues. Continue home medications. Continue diuretics. //GERD. Chronic. Continue PPI. //Chronic pain. //Acute pain in right foot secondary to wound Continue home medications. -Discharged home on short course of oxycodone. She will follow-up with primary care. //Thrombocytopenia Platelets 97 on admission. No signs of bleeding. Secondary to cirrhosis. -11/30. Decrease in platelets to 54. Discontinue Zosyn. Continue to monitor. -12/01. Platelets overall stable at 49. Hemoglobin stable. Likely can [place] to Zosyn. Expect to improve. Follow with primary care. //Leukopenia. 2.6. Stable. Neutrophils acceptable. //Prophylaxis. SCDs. Will hold off on anticoagulation due to thrombocytopenia. Discharge Planning appreciate podiatry assistance. Discharge home. Shouldn't has been provided with walking boot. Keflex to complete treatment course. He does have leukopenia and thrombocytopenia, likely secondary to Zosyn. Expect to improve. Follow-up with primary care. Shine Nguyen MD Dec 02, 2016 07:58
--- NOTE | 2016-12-02 08:03 | HHI.DS ---
Discharge Summary Admission Date Nov 29, 2016 at 04:45 Discharge Date: Dec 01, 2016 Admitting Diagnosis Puncture wound R foot infection; Diabetes (1) Puncture wound of foot, right ICD Code: S91.331A (2) Diabetes ICD Code: E11.9 Procedures Wound probed on admission in the ER, with sterile culture at that time. Normal skin marielena resulted Brief History - From Admission 56-year-old male with a history of cirrhosis, hepatitis C status post treatment , diabetes, who presents having stepped on a nail with his right foot around 5 PM on 11/28. Nail which was quite fern went through sandal became stuck in pad of right foot, had to be removed with pliers by the patient. He reports extreme sharp pain which is constant in the right foot, nonradiating. He reports feeling all right prior to stepping on the nail, at baseline. Sterile culture was performed in ER. He reports that pain in right foot has gotten worse since admission. Patient denies any fevers. Denies any nausea or vomiting. Denies any headache. Denies any chest pain or shortness of breath. CBC/BMP: 12/01/16 0740 12/01/16 0740 Significant Findings Laboratory Tests Test 11/30/16 11/30/16 12/01/16 07:10 18:20 07:40 White Blood Count 2.2 TH/MM3 2.6 TH/MM3 (4.0-11.0) (4.0-11.0) Platelet Count 54 TH/MM3 49 TH/MM3 (150-450) (150-450) Monocytes (%) (Auto) 14.6 % 11.6 % (0.0-8.0) (0.0-8.0) Neutrophils # (Auto) 1.1 TH/MM3 1.4 TH/MM3 (1.8-7.7) (1.8-7.7) Lymphocytes # (Auto) 0.7 TH/MM3 0.8 TH/MM3 (1.0-4.8) (1.0-4.8) Platelet Estimate LOW (NORMAL) LOW (NORMAL) Random Glucose 293 MG/DL 236 MG/DL (74-106) (74-106) Phosphorus Level 2.3 MG/DL (2.5-4.9) Albumin 2.9 GM/DL (3.4-5.0) Hemoglobin A1c 8.5 % (4.3-6.0) Imaging Last Impressions Foot X-Ray 11/29/16 0000 Signed Impressions: Service Date/Time: November 02:46 - CONCLUSION: Unremarkable limited examination of the right foot. Dennis Grijalva Jr., MD Hospital Course Foot x-ray with no acute findings. Patient was started on broad-spectrum antibiotics, narcotic pain medication with slow improvement in pain. Podiatry was consulted, does not feel any intervention is necessary. Will discharge home on course of Keflex. Patient will need to follow-up with primary care. He will medical attention if fevers or chills. Patient does have leukopenia with acceptable neutrophil count, which is up trending at discharge. He also has acute on chronic thrombocytopenia, platelets 97 on admission, subsequently 54, 49 on date of discharge without any acute bleeding. He did not receive heparin, however did receive Zosyn. 07 was discontinued. Follow-up with primary care. For problem-based summary for most recent progress note, please see below. //Diabetic foot infection. //Status post nail puncture by foot -Nail went through shoe -Received tetanus vaccination. -Initially on clindamycin IV started on admission -11/29. We'll start Zosyn for antipseudomonal coverage and diabetic foot wound in consult podiatry. Cultures on admission with rare gram-positive cocci. -11/30. Appreciate podiatry assistance. Switched to cefepime due to thrombocytopenia -12/01. Podiatry has supplied patient with boot. He will follow-up with primary care as outpatient. Continue Keflex to complete treatment course. He'll return if any fevers. //Diabetes. . -11/29. Glucose in the 400s. We'll increase Levemir, add mealtime aspart, increased sliding scale. Continue to monitor. -11/30. Increase insulin again. A1c pending. -12/01. Control somewhat improved. Discharge home. A1c 8.5 uncontrolled. Follow with primary care. //History of seizures. Chronic. Continue Keppra. //History of hepatic encephalopathy. //History of cirrhosis. No acute issues. Continue home medications. Continue diuretics. //GERD. Chronic. Continue PPI. //Chronic pain. //Acute pain in right foot secondary to wound Continue home medications. -Discharged home on short course of oxycodone. She will follow-up with primary care. //Thrombocytopenia Platelets 97 on admission. No signs of bleeding. Secondary to cirrhosis. -11/30. Decrease in platelets to 54. Discontinue Zosyn. Continue to monitor. -12/01. Platelets overall stable at 49. Hemoglobin stable. Likely can [place] to Zosyn. Expect to improve. Follow with primary care. //Leukopenia. 2.6. Stable. Neutrophils acceptable. //Prophylaxis. SCDs. Will hold off on anticoagulation due to thrombocytopenia. Discharge Planning appreciate podiatry assistance. Discharge home. Shouldn't has been provided with walking boot. Keflex to complete treatment course. He does have leukopenia and thrombocytopenia, likely secondary to Zosyn. Expect to improve. Follow-up with primary care. Pt Condition on Discharge: Good Discharge Disposition: Discharge Home Discharge Time: > 30 minutes Discharge Instructions DIET: Follow Instructions for: Diabetic Diet Activities you can perform: Regular-No Restrictions Other Activity Instructions: wear walking boot Follow up Referrals: PCP Follow-up - 2-3 Days New Medications: Cephalexin (Keflex) 500 Mg Cap 500 MG PO Q6H Infection #28 Ref 0 CAP Mupirocin Topical (Mupirocin Topical) 2 % Oint 1 APPLIC TOPICAL BID Mgmt Bacterial Infection #1 Ref 0 TUBE Oxycodone (Oxycodone) 10 Mg Tab 10 MG PO Q4H PRN PAIN #20 Ref 0 TAB Continued Medications: Alendronate (Fosamax) 70 Mg Tab 35 MG PO Q7D Osteoporosis Treatment #4 Ref 0 TAB Alprazolam (Xanax) 2 Mg Tab 2 MG PO Q8H PRN ANXIETY Ref 0 TAB Carisoprodol (Soma) 350 Mg Tab 350 MG PO TID PAIN Ref [address] (Nexium) 40 Mg Capdr 40 MG PO DAILY Ref 0 CAP Furosemide (Lasix) 40 Mg Tab 80 MG PO AC BREAKFAST #30 Ref 0 TAB Furosemide (Lasix) 40 Mg Tab 40 MG PO 1PM & 6PM #60 Ref 0 TAB Hydrocodone-Acetaminophen (Hydrocodone-Acetaminophen) 10-325 mg Tab 1 TAB PO Q6H PRN PAIN Ref 0 TAB Insulin Aspart Inj (Novolog Inj) 1,000 Unit/10 Ml Vial 35 UNITS SQ TIDAC Blood Sugar Management #10 Ref 0 ML Insulin Degludec Inj (Tresiba Flextouch Pen Inj) 600 unit/3 ML Pen 80 UNITS SQ DAILY Blood Sugar Management #9 Ref 0 ML Levetiracetam (Keppra) 500 Mg Tab 500 MG PO BID Control Seizures #60 Ref 0 TAB Metformin (Metformin) 500 Mg Tab 500 MG PO DAILY With a meal Blood Sugar Management #30 Ref 0 TAB Potassium Chloride ER (Potassium Chloride ER) 20 Meq Tab 20 MEQ PO BID Electrolyte Replacement #60 Ref 0 TAB Promethazine-Codeine Liq (Promethazine-Codeine Liq) 6.25-10 Mg/5 Ml Syrp 5 ML PO Q4H PRN COUGH AND/OR COLD SYMPTOMS Ref 0 ML Propranolol (Propranolol) 10 Mg Tab 10 MG PO Q8HR #90 Ref 0 TAB Rifaximin (Xifaxan) 550 Mg Tab 550 MG PO Q12HR Hepatic encephalopathy #60 Ref 0 TAB Shine Nguyen MD Dec 02, 2016 08:03
== END 2016-12-01 12:30 | disposition home or self-care (01) ==
LOC: PHED 22:08 → PHEDA 11-29 04:45 → PH3A 11-29 05:57
PROVIDERS: ADMIT Internal Medicine; ATTEND Internal Medicine
DX: E11.628 Type 2 diabetes mellitus with other skin complications (principal); S91.331A Puncture wound without foreign body, right foot, initial encounter; L08.9 Local infection of the skin and subcutaneous tissue, unspecified; E11.65 Type 2 diabetes mellitus with hyperglycemia; R56.9 Unspecified convulsions; K21.9 Gastro-esophageal reflux disease without esophagitis; D72.819 Decreased white blood cell count, unspecified; Z23 Encounter for immunization; G89.29 Other chronic pain; K74.60 Unspecified cirrhosis of liver; E11.40 Type 2 diabetes mellitus with diabetic neuropathy, unspecified; J44.9 Chronic obstructive pulmonary disease, unspecified; I11.0 Hypertensive heart disease with heart failure; I50.9 Heart failure, unspecified; G20 Parkinson's disease; I25.10 Atherosclerotic heart disease of native coronary artery without angina pectoris; F41.9 Anxiety disorder, unspecified; F32.9 Major depressive disorder, single episode, unspecified; Z79.4 Long term (current) use of insulin; Z88.6 Allergy status to analgesic agent; Z88.8 Allergy status to other drugs, medicaments and biological substances; Z87.891 Personal history of nicotine dependence; Z86.73 Personal history of transient ischemic attack (TIA), and cerebral infarction without residual deficits; Z95.5 Presence of coronary angioplasty implant and graft; Z88.4 Allergy status to anesthetic agent; W45.0XXA Nail entering through skin, initial encounter; B96.89 Other specified bacterial agents as the cause of diseases classified elsewhere; D69.59 Other secondary thrombocytopenia
CPT/HCPCS: 73620; 80048; 80069; 82948; 83036; 83735; 85025; 85652; 86403; 87040; 87070; 87205; 90471; 90714; 96365; 99284; G0378; J0692; J1170; J1815; J2543; L2114